=== PATIENT | male | born 2005 | race Caucasian/White ===

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

== ENCOUNTER → 2025-07-24 | Outpatient (CLI) | payer BC ==
[~2025-07-24] MED LIST changes: +METH27TA16; -METH27TA5; +PROHANCE 279.3MG/ML 15ML VIAL As Ordered ONE
== END ==
LOC: M RAD 16:03
PROVIDERS: ATTEND Neurological Surgery
DX: J32.0 Chronic maxillary sinusitis (principal); J32.2 Chronic ethmoidal sinusitis; R51.9 Headache, unspecified; M54.50 Low back pain, unspecified; R29.2 Abnormal reflex; R26.89 Other abnormalities of gait and mobility; R25.2 Cramp and spasm
CPT/HCPCS: 70553; A9579

== ENCOUNTER → 2025-07-29 | Outpatient (CLI) | payer BC ==
[~2025-07-29] MED LIST changes: -PROHANCE 279.3MG/ML 15ML VIAL As Ordered ONE; +PROHANCE 279.3MG/ML 15ML VIAL ONE
== END ==
LOC: M PLAIMG 12:47
PROVIDERS: ATTEND Neurological Surgery
DX: R51.9 Headache, unspecified (principal); R29.2 Abnormal reflex; R26.89 Other abnormalities of gait and mobility; M54.50 Low back pain, unspecified; R25.2 Cramp and spasm
CPT/HCPCS: 72158; A9579

== ENCOUNTER → 2025-08-05 | Outpatient (CLI) | payer BC ==
[~2025-08-05] MED LIST changes: +PROHANCE 279.3MG/ML 15ML VIAL As Ordered ONE; -PROHANCE 279.3MG/ML 15ML VIAL ONE
== END ==
LOC: M RAD 15:52
PROVIDERS: ATTEND Neurological Surgery
DX: R51.9 Headache, unspecified (principal); R29.2 Abnormal reflex; R26.89 Other abnormalities of gait and mobility; M54.50 Low back pain, unspecified; R25.2 Cramp and spasm
CPT/HCPCS: 72156; 72157; A9579